=== PATIENT | male | born 1975 | race Caucasian/White ===

== ENCOUNTER 2021-04-05 15:24 | Inpatient (IN) | payer OTHER ==
[2021-04-05 17:35] VITALS: BMI 30.7
[2021-04-05] MEDS ORDERED: MENTHOL/PHENOL 1 EACH UD MM PRN (17:53)
[2021-04-05] MEDS ORDERED: ACETAMINOPHEN 325 MG TABLET (FP) PO PRN ×2 (17:53)
[2021-04-05] MEDS ORDERED: BISMUTH SUBSALICYLATE 524 MG/30 ML PO PRN (17:53)
[2021-04-05] MEDS ORDERED: hydrOXYzine PAMOATE 25 MG CAPSULE (FP) PO PRN (17:53)
[2021-04-05] MEDS ORDERED: diazePAM 5 MG TABLET PO PRN (17:53)
[2021-04-05] MEDS ORDERED: MAGNESIUM CITRATE 300 ML BOTTLE PO PRN (17:53)
[2021-04-05] MEDS ORDERED: METHOCARBAMOL 500 MG TABLET PO PRN (17:53)
[2021-04-05] MEDS ORDERED: MAGNESIUM HYDROX 2400MG/30ML ORAL SUSPENSION 30 ML CUP PO PRN (17:53)
[2021-04-05] MEDS ORDERED: MAG HYDROX/AL HYDROX/SIMETH 30 ML UNIT-DOSE CUP PO PRN (17:53)
[2021-04-05] MEDS ORDERED: IBUPROFEN 400 MG TABLET (FP) PO PRN (17:53)
[2021-04-05] MEDS ORDERED: ONDANSETRON *ODT* 4 MG TABLET SL PRN (17:53)
[2021-04-05] MEDS: MELATONIN 5 MG TABLETS PO SCH (22:22)
[2021-04-05] MEDS: THIAMINE HCL 100 MG TABLET (FP) PO SCH (22:22)
[2021-04-05] MEDS: diazePAM 5 MG TABLET PO SCH (22:22)
[2021-04-06] MEDS: diazePAM 5 MG TABLET PO SCH ×4 (06:10→22:06)
[2021-04-06] MEDS ORDERED: THIAMINE HCL 100 MG TABLET (FP) PO SCH (10:00)
[2021-04-06 10:02] LABS: HEMATOCRIT 39.9 % (35.4-49); HEMOGLOBIN 13.4 GM/dL (11.7-16.9); MCH 27.3 pg (25.7-33.7); MCHC 33.5 g/dl (32.0-35.9); MEAN CELL VOLUME 81.5 fl (80-96); MEAN PLT VOLUME 9.8 fl (7.5-11.1); RDW 18.2 % (11.9-15.9); WHITE BLOOD COUNT 3.4 K/mm3 (4.0-10.0)
[2021-04-06 10:04] LABS: CALCIUM 8.3 mg/dL (8.5-10.1)
[2021-04-06 10:05] LABS: ALBUMIN 3.6 g/dl (3.4-5.0)
[2021-04-06 10:06] LABS: BLOOD UREA NITROGEN 7.9 mg/dL (7-18)
[2021-04-06] MEDS: FOLIC ACID 1 MG TABLET (FP) PO SCH (10:06)
[2021-04-06] MEDS: PANTOPRAZOLE 40 MG TABLET PO SCH (10:06)
[2021-04-06 10:08] LABS: CREATININE 0.8 mg/dL (0.55-1.3)
[2021-04-06] MEDS: PRENATAL VITAMINS W/ FOLIC ACID TABLET (FP) PO SCH (10:08)
[2021-04-06 10:09] LABS: BILIRUBIN,TOTAL 6.5 mg/dL (0.2-1)
[2021-04-06 10:10] LABS: TOT PROT 8.7 g/dl (6.4-8.2)
[2021-04-06] MEDS ORDERED: POTASSIUM CHLORIDE ORAL LIQUID 20 MEQ/15 ML PO ONE ×2 (11:00→15:00)
[2021-04-06 11:08] LABS: PLATELET COUNT 17 10^3/uL (134-434)
[2021-04-06] MEDS: MELATONIN 5 MG TABLETS PO SCH (22:07)
[2021-04-06] MEDS: THIAMINE HCL 100 MG TABLET (FP) PO SCH (22:08)
[2021-04-07] MEDS: diazePAM 5 MG TABLET PO SCH ×3 (05:43→22:27)
[2021-04-07] MEDS: PRENATAL VITAMINS W/ FOLIC ACID TABLET (FP) PO SCH (10:09)
[2021-04-07] MEDS: PANTOPRAZOLE 40 MG TABLET PO SCH (10:09)
[2021-04-07] MEDS: FOLIC ACID 1 MG TABLET (FP) PO SCH (10:09)
[2021-04-07 10:33] LABS: BILIRUBIN,DIRECT 3.5 mg/dL (0.0-0.2)
[2021-04-07 10:35] LABS: TOT PROT 7.4 g/dl (6.4-8.2)
[2021-04-07] MEDS: MELATONIN 5 MG TABLETS PO SCH (22:28)
[2021-04-07] MEDS: THIAMINE HCL 100 MG TABLET (FP) PO SCH (22:28)
[2021-04-08] MEDS: diazePAM 5 MG TABLET PO SCH ×2 (05:54→17:25)
[2021-04-08] MEDS: FOLIC ACID 1 MG TABLET (FP) PO SCH (10:32)
[2021-04-08] MEDS: PRENATAL VITAMINS W/ FOLIC ACID TABLET (FP) PO SCH (10:32)
[2021-04-08] MEDS: PANTOPRAZOLE 40 MG TABLET PO SCH (10:32)
[2021-04-08] MEDS: THIAMINE HCL 100 MG TABLET (FP) PO SCH (22:18)
[2021-04-08] MEDS: MELATONIN 5 MG TABLETS PO SCH (22:18)
[2021-04-09] MEDS ORDERED: diazePAM 5 MG TABLET PO ONE (06:00)
[2021-04-09 09:05] VITALS: BP 118/68; PULSE 73; TEMP 98
[2021-04-09] MEDS: FOLIC ACID 1 MG TABLET (FP) PO SCH (09:37)
[2021-04-09] MEDS: PANTOPRAZOLE 40 MG TABLET PO SCH (09:37)
[2021-04-09] MEDS: PRENATAL VITAMINS W/ FOLIC ACID TABLET (FP) PO SCH (09:37)
== END 2021-04-09 10:26 | disposition home or self-care (01) | DRG 775 ==
LOC: YASAS 15:24 → Y6N 17:43
PROVIDERS: ADMIT Allergy & Immunology; ATTEND Allergy & Immunology
PROC: HZ2ZZZZ Detoxification Services for Substance Abuse Treatment (ICD-10-PCS; principal; 2021-04-05)
DX: F10.230 Alcohol dependence with withdrawal, uncomplicated (principal); F10.282 Alcohol dependence with alcohol-induced sleep disorder; F10.280 Alcohol dependence with alcohol-induced anxiety disorder; F10.24 Alcohol dependence with alcohol-induced mood disorder; D69.59 Other secondary thrombocytopenia; D72.819 Decreased white blood cell count, unspecified; I10 Essential (primary) hypertension; R74.01 Elevation of levels of liver transaminase levels
CPT/HCPCS: 36415; 80053; 80076; 82962; 84132; 85027; 86780; C9803; U0003; U0005